=== PATIENT | male | born 1950 | race Caucasian/White ===

== ENCOUNTER → 2017-07-14 | Outpatient (CLI) | payer MEDICARE, OTHER ==
--- NOTE | ~2017-07-14 | HM ---
[place], [place] HOLTER MONITOR REPORT NAME: ALYSSA CARTER UNIT #: [id number] ROOM: DOCTOR: BORA HARTMAN MD BIRTHDATE: [birth year] DOS: 07/17/2017 The patient remained in sinus rhythm throughout the entire period. Minimum heart rate is 55, average heart rate of 69, maximum heart rate is 99 beats per minute. No significant cardiac dysrhythmia. Isolated PVCs are present. No significant bradycardic episodes. No pauses. FINAL IMPRESSION: Sinus rhythm with occasional isolated PVCs. No bradycardia, no significant tachycardia. No significant pauses. BORA HARTMAN MD CM:HOLTER:HOLTER MONITOR REPORT [id number] BORA HARTMAN MD
== END | disposition home or self-care (01) ==
LOC: CARD 10:30
DX: R00.2 Palpitations (principal)

== ENCOUNTER → 2021-10-30 | Outpatient (CLI) | payer MEDICARE, OTHER | END | disposition home or self-care (01) | LOC: CARD 14:31 | PROVIDERS: ATTEND Internal Medicine Cardiovascular Disease | DX: I35.8 Other nonrheumatic aortic valve disorders (principal) ==